=== PATIENT | male | born 1945 | race Asian ===

== ENCOUNTER → 2016-09-28 | Outpatient (CLI) | payer BC, OTHER, MEDICARE ==
--- NOTE | 2016-09-28 22:01 | DI ---
AP PELVIS and BILATERAL HIPS, 09/28/2016 4:19 PM : Clinical History: Bilateral osteoarthritis of the hip. Status post total right hip replacement. Previous Exam: None at this facility. There is no soft tissue abnormality. The bony structures of the pelvis are normal. 2 views of the rig ht hip show the patient be status post total right hip replacement. The prosthetic device articulates normally. A lucency surrounding the proximal third of the femoral shank has decreased on the medial and lateral aspects with no evidence of a lucency around the distal femoral shank. 2 views of the lef t hip show asphericity of the femoral head with what probably represents a dysplastic "bump". Subchon dral cystic changes are present in the femoral head along the superior and medial aspect with more sc lerosis and increase in the number of cystic changes on the acetabular side of the joint space. There has been progressive joint space narrowing superiorly. There is no acetabular over coverage. Readin. 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 2. Status post total right hip replacement. The prosthetic device articulates normally. The lucency surrounding the femoral shank in the proximal third has actually decreased since the last exam partic ularly on the medial aspect. This is unlikely to represent loosening of the prosthesis. The exact jesus ology for this lucency with its subsequent apparent partial resolution is uncertain.
== END ==
LOC: ORTHO 16:51
PROVIDERS: ATTEND Orthopaedic Surgery
DX: Z01.818 Encounter for other preprocedural examination (principal); M16.0 Bilateral primary osteoarthritis of hip; Z96.641 Presence of right artificial hip joint
CPT/HCPCS: 73521

== ENCOUNTER → 2016-09-29 | Outpatient (CLI) | payer BC, OTHER, MEDICARE ==
[2016-09-29 09:19] LABS: BASOPHILS # (AUTO) 0.06 10*3/UL; EOSINOPHILS # (AUTO) 0.19 10*3/UL; EOSINOPHILS % (AUTO) 3.1 % (0-8); HEMATOCRIT 45.4 % (42.0-52.0); HEMOGLOBIN 15.3 g/dL (14.0-18.0); LYMPHOCYTES # (AUTO) 1.02 10*3/uL; MEAN CORPUSCULAR HEMOGLOBIN 29.9 PG (27-31); MEAN CORPUSCULAR HGB CONC 33.7 g/dL (33-37); MEAN CORPUSCULAR VOLUME 88.8 FL (80-90); MEAN PLATELET VOLUME 9.1 FL (7.4-12.2); MONOCYTES # (AUTO) 0.43 10*3/UL (0.3-0.8); NEUTROPHILS # (AUTO) 4.41 10*3/UL; RED BLOOD COUNT 5.11 10^6/uL (4.70-6.10)
--- NOTE | 2016-09-29 09:30 | EKG ---
[address] [address] Measurements Intervals [place] Rate: 57 P: 56 IA: 219 QRS: 50 QRSD: 112 T: 7 QT: 423 QTc: 416 Interpretive Statements SINUS BRADYCARDIA WITH FIRST DEGREE AV BLOCK INTRAVENTRICULAR CONDUCTION DELAY Compared to ECG 05/29/2014 09:58:27 First degree AV block now present Sinus rhythm no longer present T-wave abnormality no longer present Electronically Signed On 09-29-16 12:52:01 MDT by Amari Victor [email or web address]
[2016-09-29 09:35] LABS: PLATELET MORPHOLOGY COMMENT NORMAL MORPHOLOGY (NORM); RBC MORPHOLOGY COMMENT NORMAL MORPHOLOGY (NORM); WBC MORPHOLOGY COMMENT NORMAL MORPHOLOGY (NORM)
[2016-09-29 09:46] LABS: HEMOGLOBIN A1C 6.01 % (4.2-6.0)
[2016-09-29 09:53] LABS: BUN/CREATININE RATIO 20.66 (6-20)
[2016-09-29 09:54] LABS: CALCIUM 9.4 mg/dL (8.7-10.7); SERUM ALBUMIN 4.6 g/dL (3.5-4.8)
[2016-09-29 09:58] LABS: CHOL/HDL RATIO 2.25 RATIO (0-4.0); LDL CHOLESTEROL,CALCULATED 63.2 mg/dL
[2016-09-29 10:49] LABS: CREATININE, URINE 145.3 MG/DL (15-500)
[2016-09-29 10:52] LABS: BILIRUBIN,URINE NEGATIVE (NEG); CLARITY,URINE CLEAR (CLEAR); COLOR,URINE YELLOW; GLUCOSE, URINE (UA) 500 mg/dL (NEG); NITRATE,URINE NEGATIVE (NEG); OCCULT BLOOD,URINE NEGATIVE (NEG); PH,URINE 5.5 (5.0-8.5); PROTEIN,URINE NEGATIVE (NEG); UROBILINOGEN,URINE 0.2 mg/dL (0.2)
[2016-09-29 10:56] LABS: BACTERIA,URINE RARE; RBC,URINE 0-1 /hpf; SQUAMOUS EPITHELIAL CELL,UR RARE; URINE SAMPLE TYPE CLEAN CATCH URINE; WBC,URINE 0-1
== END ==
LOC: LAB 08:46
PROVIDERS: ATTEND Internal Medicine
DX: Z01.812 Encounter for preprocedural laboratory examination (principal); Z01.810 Encounter for preprocedural cardiovascular examination; M16.12 Unilateral primary osteoarthritis, left hip; R00.1 Bradycardia, unspecified; I44.0 Atrioventricular block, first degree; I45.89 Other specified conduction disorders; E11.9 Type 2 diabetes mellitus without complications; I10 Essential (primary) hypertension; E03.9 Hypothyroidism, unspecified; E78.5 Hyperlipidemia, unspecified; G47.33 Obstructive sleep apnea (adult) (pediatric); N40.0 Benign prostatic hyperplasia without lower urinary tract symptoms; Z12.5 Encounter for screening for malignant neoplasm of prostate
CPT/HCPCS: 36415; 80053; 80061; 81001; 82043; 83036; 84443; 85025; 86850; 87641; 93005; 93010; G0103

== ENCOUNTER 2016-10-06 05:59 | Inpatient (IN) | payer BC, OTHER, MEDICARE ==
[~2016-10-06 05:59] MED LIST: LIDOCAINE W/ SODIUM BICARB 0.5 ML SYR ONE; Lactated Ringers 1,000 ML PRIMARY IV ONE; ceFAZolin Inj 2gm (Premix) 50 ML IV ONE
[2016-10-06 06:18] LABS: BILIRUBIN,URINE NEGATIVE (NEG); CLARITY,URINE CLEAR (CLEAR); COLOR,URINE YELLOW; GLUCOSE, URINE (UA) 500 mg/dL (NEG); NITRATE,URINE NEGATIVE (NEG); OCCULT BLOOD,URINE NEGATIVE (NEG); PROTEIN,URINE NEGATIVE (NEG); UROBILINOGEN,URINE 0.2 mg/dL (0.2)
[2016-10-06 06:19] LABS: URINE SAMPLE TYPE CLEAN CATCH URINE
[2016-10-06 06:22] LABS: BACTERIA,URINE RARE; RBC,URINE 0 /hpf; SQUAMOUS EPITHELIAL CELL,UR RARE; WBC,URINE 0
[2016-10-06] MEDS ORDERED: SUFENTANIL 50 MCG/1 ML ONE (06:29)
[2016-10-06] MEDS ORDERED: MIDAZOLAM 5 MG/1 ML ONE (06:29)
[2016-10-06] MEDS ORDERED: LIDOCAINE MPF 2% - 5 ML (20 MG/1 ML) ONE (06:32)
[2016-10-06] MEDS ORDERED: Sodium Chloride 0.9% vial 10 ML ONE ×3 (06:32→07:23)
[2016-10-06] MEDS ORDERED: ROCURONIUM 10 MG/1 ML - 5 ML VIAL IVP ONE (06:34)
[2016-10-06] MEDS ORDERED: Sodium Chloride 0.9% 250 ML IV ONE (06:34)
[2016-10-06] MEDS ORDERED: Sodium Chloride 0.9% 2,000 ML ONE (06:35)
[2016-10-06] MEDS ORDERED: Gentamicin Inj 40 MG/ML VIAL ONE (06:38)
[2016-10-06] MEDS ORDERED: HEPARIN 10,000 UNIT/1 ML ONE (06:38)
[2016-10-06] MEDS ORDERED: ONDANSETRON 4 MG/2 ML VIAL IVP PRN ×2 (06:41→12:37)
[2016-10-06] MEDS ORDERED: fentaNYL Inj 100 MCG/2 ML VIAL IVP PRN (06:41)
[2016-10-06] MEDS ORDERED: Ondansetron ODT Tab 8 MG TAB PO PRN ×2 (06:41→12:37)
[2016-10-06] MEDS ORDERED: NORMAL SALINE 10 ML SYRINGE FLUSH IVP PRN ×2 (06:41→12:37)
[2016-10-06] MEDS ORDERED: ATROPINE SULFATE 0.4 MG/1 ML VIAL IVP PRN (06:41)
[2016-10-06] MEDS ORDERED: Lactated Ringers 1,000 ML PRIMARY IV SCH (06:45)
[2016-10-06] MEDS ORDERED: TRANEXAMIC ACID 1,000 MG / 10 ML VIAL ONE ×2 (07:09→07:13)
[2016-10-06] MEDS ORDERED: Sodium Chloride 0.9% 200 ML IV ONE (07:09)
[2016-10-06] MEDS ORDERED: BUPivacaine Liposome/PF (Exparel) Inj 20ml vial INFIL ONE (07:23)
[2016-10-06] MEDS ORDERED: Bacteriostatic NaCl Inj 30ml Vial ONE (07:23)
[2016-10-06] MEDS ORDERED: KETAMINE 100 MG/1 ML - 5 ML ONE (07:49)
[2016-10-06] MEDS ORDERED: ePHEDrine Inj 50 MG/ML AMP ONE (08:28)
[2016-10-06] MEDS ORDERED: Hetastarch 6% + NS 500 ML IV ONE (09:02)
[2016-10-06] MEDS: Ketorolac Inj 30 MG, Morphine Inj 5 MG, BUPivacaine Inj 0.25% PF 150 MG SPLASH ONE ×9 (09:12→14:21)
[2016-10-06] MEDS ORDERED: GLYCOPYRROLATE 0.2 MG/1 ML VIAL ONE (10:41)
[2016-10-06] MEDS ORDERED: NEOSTIGMINE 1 MG/1 ML - 10 ML ONE (10:41)
[2016-10-06] MEDS ORDERED: Acetaminophen 1000mg Inj 100 ML IV ONE (11:17)
[2016-10-06] MEDS ORDERED: Lactated Ringers 1,000 ML PRIMARY IV ONE (11:43)
[2016-10-06] MEDS ORDERED: ONDANSETRON 4 MG/2 ML VIAL ONE (11:48)
[2016-10-06] MEDS ORDERED: HYDROmorphone 2 MG/1 ML IVP PRN (12:37)
[2016-10-06] MEDS ORDERED: BISACODYL 5 MG TABLET PO PRN (12:37)
[2016-10-06] MEDS ORDERED: IBUPROFEN 400 MG TABLET PO PRN (12:37)
[2016-10-06] MEDS ORDERED: HYDROcodone-APAP 7.5 MG-325 MG TABLET PO PRN (12:37)
[2016-10-06] MEDS ORDERED: Prochlorperazine Tab 10 MG TAB PO PRN (12:37)
[2016-10-06] MEDS ORDERED: diphenhydrAMINE 25 MG CAPSULE PO PRN (12:37)
[2016-10-06] MEDS ORDERED: MAG HYDROX/AL HYDROX/SIMETH 30 ML SUSP PO PRN (12:37)
[2016-10-06] MEDS ORDERED: BISACODYL 10 MG SUPPOSITORY RECTAL PRN (12:37)
[2016-10-06] MEDS ORDERED: CALCIUM CARBONATE 500 MG (TUMS) CHEWABLE TABLET PO PRN (12:37)
[2016-10-06] MEDS ORDERED: ACETAMINOPHEN 325 MG TABLET PO PRN (12:37)
--- NOTE | 2016-10-06 13:05 | CONSULT ---
Consult Note - Consult Consult Date: 10/06/16 Reason for Consult: PostOp Consulation : Ortho Requesting Physician: Dr. 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 Allen. He said he had arthritis secondary to [employer], he had his right hip replaced back in 2014 and now he is coming to have his right hip replacement. Medical history includes history of hypertension, hypothyroidism, BPH and hypercholesterolemia with hyperglycemia, prediabetes. Currently he is having some issues with urination but otherwise he is denying significant pain in his hip, he had some nausea earlier that's resolved. He had some light he said in front of his eyes while was talking to him then he laid down, he said he had history of previous migraine with no headaches before. No chest pain, no shortness of breath. Past Medical History Medical History: 1. Hypertension. 2. Hypercholesterolemia. 3. Hypertriglyceridemia. 4. Bilateral hip osteoarthritis. 5. Sleep apnea with BiPAP use. 6. Hypothyroidism. 7. Diverticulosis Surgical History: 1. Tonsillectomy and Adenoidectomy. 2. Appendectomy. C. Colonoscopy. 4. Sigmoid resection (partial) due to diverticulitis. 5. Anterior cruciate ligament repair. 6. Vasectomy Pertinent Family History: Significant for adult onset diabetes. Parents really due to "old age" Past Social History: Does not smoke or drink. . Has 2 children. Is a radiologist. Tobacco Use: Never Smoker Substance Use Type: None Alcohol Use: Rarely Review of Systems - Review of Systems All Systems: Reviewed & No Additional Complaints Except as Stated Medication / Allergies Home Medications: Home Medications Medication Instructions Recorded Confirmed Type Dapagliflozin Propanediol [Farxiga] 1 tab PO QD #90 tab 09/29/16 10/06/16 Clinic Fenofibrate,Micronized 1 cap PO DAILY #90 09/29/16 10/06/16 Clinic [Fenofibrate] Levothyroxine Sodium [Synthroid] 1 tab PO DAILY #90 tab 09/29/16 10/06/16 Clinic Simvastatin 1 tab PO DAILY #90 tab 09/29/16 10/06/16 Clinic Tadalafil [Cialis] 1 tab PO QD #90 tab 09/29/16 10/06/16 Clinic Tamsulosin HCl 2 cap PO QHS #180 cap 09/29/16 10/06/16 Clinic Triamcinolone Acetonide 45 gm TP QID PRN #1 tube 09/29/16 10/06/16 Clinic Allergies/Adverse Reactions: Allergies Allergy/AdvReac Type Severity Reaction Status Date / Time adhesive Allergy Severe RASH Verified 10/06/16 18:46 bacitracin [From Polysporin] Allergy Severe SWELLING Verified 10/06/16 18:46 polymyxin B sulfate Allergy Severe SWELLING Verified 10/06/16 18:46 [From Polysporin] Latex, Natural Rubber Allergy Intermediate RASH Verified 10/06/16 18:46 Exam - Vitals Vital Signs: Vital Signs Temperature 97.1 F Temperature Source Temporal Artery Scan Pulse Rate 61 Respiratory Rate 14 Blood Pressure 120/73 Oxygen Delivery Method Room Air Height 5 ft 8 in Weight 177 lb - General General Appearance: POSITIVE: No Acute Distress, Cooperative, Obese - Head Head Exam: POSITIVE: Normal Inspection, Atraumatic - Eye Eye Exam: POSITIVE: Normal Appearance - ENT ENT Exam: POSITIVE: Normal Exam - Neck Neck Exam: POSITIVE: Normal Inspection - Respiratory Respiratory Exam: POSITIVE: Clear to Auscultation - Bilaterally - Cardiovascular Cardiovascular Exam: POSITIVE: RRR - GI/Abdominal GI/Abdominal Exam: POSITIVE: Normal Bowel Sounds, Non Tender, Non Distended, Soft Additional GI/Abdominal Exam Details: Bladder is distended - Rectal Rectal Exam: POSITIVE: Deferred - External Exam: POSITIVE: Deferred - Extremities Extremities Exam: POSITIVE: Normal Inspection Additional Extremities Exam Details: As a drain to the left hip - Back Back Exam: POSITIVE: Normal Inspection Results - Labs Labs - Last 24 Hours: Laboratory Results 10/06/16 10/06/16 Range/Units 06:19 06:30 Ur Collection Type Clean catch urine Urine Color Yellow Urine Clarity Clear (CLEAR) Urine pH 5.0 (5.0-8.5) Ur Specific [place] 1.020 (1.005-1.030) Urine Protein Negative (NEG) mg/dl Urine Glucose (UA) 500 (NEG) mg/dL Urine Ketones Negative (NEG) Urine Occult Blood Negative (NEG) Urine Nitrate Negative (NEG) Urine Bilirubin Negative (NEG) Urine Urobilinogen 0.2 (0.2) mg/dL Ur Leukocyte Esterase Negative (NEG) Urine RBC 0 (NONE) /hpf Urine WBC 0 (NONE) Ur Squamous Epith Cells Rare (NONE) Ur Renal Epithelial Cell None (NONE) Urine Crystals None Urine Bacteria Rare (NONE) Urine Casts None Urine Mucus Rare (NONE) Urine Trichomonas None (NONE) Urine Yeast None (NONE) Blood Type A POSITIVE Antibody Screen Negative Assessment and Plan - Patient Problems (1) S/P total hip arthroplasty Current Visit: No Status: Acute Comment: PT and OT were ordered. For DVT prophylaxis he was put on aspirin by Dr. Allen. (2) Hypercholesterolemia with hyperglyceridemia Current Visit: No Status: Acute Comment: Same med (3) BPH (benign prostatic hyperplasia) Current Visit: Yes Status: Acute Comment: Same med (4) Prediabetes Current Visit: Yes Status: Acute Comment: Same med (5) Hypothyroidism Current Visit: No Status: Acute Comment: Same med (6) Vision changes Current Visit: Yes Status: Acute Comment: unclear reason, he is describing lights when he closes his eyes, not present when he open them, no visual acuity issues thought. will watch for now, ? anesthetic related.
[2016-10-06] MEDS: Lactated Ringers 1,000 ML PRIMARY IV SCH ×2 (14:21→23:08)
[2016-10-06] MEDS: TADALAFIL 5 MG PO SCH ×2 (14:21→20:26)
--- NOTE | 2016-10-06 15:07 | DI ---
HISTORY: Post-op total hip. FINDINGS: Examination reveals total left hip replacement prosthesis which appears to be in satisfact ory position and alignment. There is no evidence of recent fracture or dislocation. IMPRESSION: 1. Satisfactory position and alignment of post-surgical hip.
[2016-10-06] MEDS: ceFAZolin Inj 2gm (Premix) 2 GM in Dextrose 1 BAG IV SCH ×2 (16:24→23:33)
[2016-10-06] MEDS: TAMSULOSIN 0.4 MG CAPSULE PO SCH (20:26)
[2016-10-06] MEDS: Simvastatin Tab 40 MG TAB PO SCH (20:26)
[2016-10-06] MEDS: DOCUSATE 100 MG CAPSULE PO SCH (20:28)
[2016-10-07 05:48] LABS: HEMATOCRIT 38.3 % (42.0-52.0); HEMOGLOBIN 12.7 g/dL (14.0-18.0); MEAN CORPUSCULAR HEMOGLOBIN 29.8 PG (27-31); MEAN CORPUSCULAR HGB CONC 33.2 g/dL (33-37); MEAN CORPUSCULAR VOLUME 89.9 FL (80-90); RED BLOOD COUNT 4.26 10^6/uL (4.70-6.10)
[2016-10-07 05:56] LABS: BUN/CREATININE RATIO 17.85 (6-20); CALCIUM 8.2 mg/dL (8.7-10.7)
--- NOTE | 2016-10-07 07:48 | ORTHO.PROG ---
Last Taken Vital Signs: Vital Signs - Last Taken Temperature 98.1 F 10/07/16 07:30 Pulse Rate 78 10/07/16 07:30 Respiratory Rate 16 10/07/16 07:30 Blood Pressure 118/61 10/07/16 07:30 Pulse Ox 94 10/07/16 07:30 Subjective: Patient notes that the visual peripheral changes he was having had resolved after surgery. Notes he is been able to urinate on his own. Objective: A leg is clean and dry drains are in place. The deep drain and the Prev[place] drains are in place and working. Motor and sensory exam is nonfocal Intake and Output - 8hrs 10/06/16 10/06/16 10/07/16 10/07/16 13:59 21:59 05:59 13:59 Intake: IV 2050 200 Intake Oral Amount 760 1620 Output: Output, Drainage Amount 215 150 Left 215 150 Output, Urine Amount 300 850 Output, Estimated Blood 200 Loss Amount Other: Percent Meal Consumed Refused Number of Voids 1 Weight 80.286 kg 80.286 kg Laboratory Results 10/07/16 Range/Units 05:40 WBC 11.68 H (4.8-10.8) 10^3/uL RBC 4.26 L (4.70-6.10) 10^6/uL Hgb 12.7 L (14.0-18.0) g/dL Hct 38.3 L (42.0-52.0) % MCV 89.9 (80-90) FL MCH 29.8 (27-31) PG MCHC 33.2 (33-37) g/dL RDW Std Deviation 45.1 (39-50) fL RDW Coeff of Papa 14.2 (11.5-14.5) % Plt Count 413 H (140-350) 10*3/uL MPV 9.0 (7.4-12.2) FL Sodium 138 (135-145) meq/L Potassium 3.8 (3.8-5.2) meq/L Chloride 102 (98-112) meq/L Carbon Dioxide 26 (23-33) meq/L Anion Gap 10 (5-20) BUN 25 H (7-22) mg/dL Creatinine 1.4 (0.70-1.50) mg/dL Estimated GFR (>60 ml/min/1.73m(2)) BUN/Creatinine Ratio 17.85 (6-20) Glucose 94 (78-110) mg/dL Calculated Osmolality 289.0 (267-292) mOsm/kg Calcium 8.2 L (8.7-10.7) mg/dL Vital Signs (24 hrs) Temp Pulse Pulse Resp BP BP Pulse Ox 10/07/16 07:30 98.1 F 78 16 118/61 94 10/07/16 04:59 99.7 F H 63 18 123/55 96 10/06/16 23:22 98.8 F 79 17 121/58 96 10/06/16 19:29 97.5 F 86 16 123/56 95 10/06/16 17:00 72 16 125/66 95 10/06/16 12:45 98.8 F 72 16 98 10/06/16 12:39 95.6 F L 83 16 140/67 97 10/06/16 12:30 96.9 F 78 16 130/68 100 10/06/16 12:00 96.9 F 83 14 125/72 10/06/16 11:50 85 16 127/70 10/06/16 11:40 87 27 H 116/73 10/06/16 11:30 88 18 135/71 10/06/16 11:20 98 13 144/86 10/06/16 11:15 98 27 H 146/86 10/06/16 11:10 97.9 F 100 27 H 140/79 Assessment: The left anterior total hip replacement doing well Plan: At the current time we will have the patient mobilizes with therapy I want him to ice the hip we'll follow the drainage closely today and look Possibly removing the deep drain based on output of the draining see the patient back sooner for problems. Continue with pneumatic sequentials aspirin.
--- NOTE | 2016-10-07 08:12 | PT.PROG ---
Progress Note Progress Note: 10/06/2016 4:00-4:30 S: pt. reports feeling well after surgery earlier this morning. He used a general anesthesia so he has been up and walking multiple times since surgery. Pt. lives alone here in [place] for the rest of the week. He has 4 stairs he needs to get up into his place and requires education on how to do so with a walker. Pt. leaves to [facility] at the end of the week where he will live for 3 wks and does have assistance. 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 O: pt. was able to perform a supine to stand, ambulate 30 ft. and safely return to seated. He was a little nauseas from the medications. A: pt. is moving very well and will likely need very little from us. He will likely only need some education on how to use the walker and traverse stairs. Ptoblem List 1. decreased mobility 2. increased discomfort Short term goals 1. walk 100 ft with a walker 2. walk 100ft with less than a 5/10 of subjective pain Personal Shopper Goals 1. Normal ambulation for 100ft 2. 0/10 of subjective pain with ADLs P: educate pt. on how to properly use a walker in different situations. perform functional activities. Initial visit: performed a supine to stand, ambulated 30ft. w/ walker, and returned to seated in a controlled manor. Len Carlin [facility]
[2016-10-07] MEDS ORDERED: DAPAGLIFLOZIN PROPANEDIOL 5 MG PO SCH (09:00)
[2016-10-07] MEDS ORDERED: LEVOTHYROXINE 75 MCG TABLET PO SCH (09:00)
--- NOTE | 2016-10-07 09:28 | PDOC(PROG) ---
Date and Time of Service: 10/07/2016 9:25 AM Interval History: Subjective Patient feels better, the vision problem that he had yesterday are resolved. No significant pain in his hip, no chest pain no shortness of breath. No nausea. He did urinate better today. Objective : Data - Labs CBC and BMP: 10/07/16 05:40 10/07/16 05:40 Labs - Last 24 Hours: Laboratory Results 10/07/16 Range/Units 05:40 WBC 11.68 H (4.8-10.8) 10^3/uL RBC 4.26 L (4.70-6.10) 10^6/uL Hgb 12.7 L (14.0-18.0) g/dL Hct 38.3 L (42.0-52.0) % MCV 89.9 (80-90) FL MCH 29.8 (27-31) PG MCHC 33.2 (33-37) g/dL RDW Std Deviation 45.1 (39-50) fL RDW Coeff of Papa 14.2 (11.5-14.5) % Plt Count 413 H (140-350) 10*3/uL MPV 9.0 (7.4-12.2) FL Sodium 138 (135-145) meq/L Potassium 3.8 (3.8-5.2) meq/L Chloride 102 (98-112) meq/L Carbon Dioxide 26 (23-33) meq/L Anion Gap 10 (5-20) BUN 25 H (7-22) mg/dL Creatinine 1.4 (0.70-1.50) mg/dL Estimated GFR (>60 ml/min/1.73m(2)) BUN/Creatinine Ratio 17.85 (6-20) Glucose 94 (78-110) mg/dL Calculated Osmolality 289.0 (267-292) mOsm/kg Calcium 8.2 L (8.7-10.7) mg/dL Objective : Exam - General General Appearance: No Acute Distress, Cooperative - Head Head Exam: Normal Inspection - Eye Eye Exam: Normal Appearance - ENT ENT Exam: Normal Exam - Neck Neck Exam: Normal Inspection - Respiratory Respiratory Exam: Clear to Auscultation - Bilaterally - Cardiovascular Cardiovascular Exam: RRR - GI/Abdominal GI/Abdominal Exam: Normal Bowel Sounds, Non Tender, Non Distended, Soft - External Exam: Deferred - Extremities Additional Extremities Exam Details: No edema noted Assessment and Plan - Patient Problems (1) S/P total hip arthroplasty Current Visit: No Status: Acute Comment: Status post surgery continue PT and OT. Dr. Allen like him to stay another day because of the volume of the fluid being drained, maybe tomorrow home. (2) Hypercholesterolemia with hyperglyceridemia Current Visit: No Status: Acute Comment: Same med (3) BPH (benign prostatic hyperplasia) Current Visit: Yes Status: Acute Comment: Same med (4) Prediabetes Current Visit: Yes Status: Acute Comment: Same med (5) Hypothyroidism Current Visit: No Status: Acute Comment: Same med (6) Vision changes Current Visit: Yes Status: Acute Comment: This is resolved (7) Hypertension Current Visit: No Status: Acute Comment: We'll watch his blood pressure today, he is normally on amlodipine, his blood pressure is acceptable if blood pressure goes higher then will put him back on amlodipine.
[2016-10-07] MEDS: TADALAFIL 5 MG PO SCH (10:01)
[2016-10-07] MEDS: FENOFIBRATE 145 MG TABLET PO SCH (10:01)
[2016-10-07] MEDS: LEVOTHYROXINE 75 MCG TABLET PO SCH (10:07)
[2016-10-07] MEDS: DOCUSATE 100 MG CAPSULE PO SCH ×2 (10:07→20:14)
[2016-10-07] MEDS: ASPIRIN 325 MG EC TABLET PO SCH ×2 (10:07→20:14)
--- NOTE | 2016-10-07 11:16 | PT.PROG ---
<MARQUIS PACHECO - Last Filed: 10/07/16 11:11> Progress Note Progress Note: 10/07/2016 10:00-10:30 S: pt. reports that his hip is feeling good and he is <SACHIN BARCENASNIE - Last Filed: 10/07/16 11:49> Progress Note Progress Note: 10/07/2016 10:00-10:30 S: pt. reports that he is feeling good. He states he has little pain with his hip and wants to do what he can to get home. O: pt. performed a 100ft walk to a staircase where he was taught how to ascend/ descend stairs with a walker. He then went up 12 stairs and down 12 stairs before ambulating 100 ft back to his bed. A: pt. is moving extremely well and is in the right mindset for his return home. The only difficulty i foresee is that he will be living alone this week, so he has little room for error when he does return home. P: continue to improve pt. comfort with functional activities.
--- NOTE | 2016-10-07 11:39 | CRNA.PROGR ---
Anesthesia Note Anesthesia Progress Note: Lying in bed. Converses easily. Has been up to bathroom, passing flatus and urine easily since 4 am this am. Nauseated till 4 am. Only able to void small amounts till 4 am. Visual field effects also departed around 4 am. Reported bright stars around objects in visual field. Also reported rectangular field of view, black when eyes open, bright white when eyes closed. Ambulating easily. Not going home today d/t drain output. Laboratory Results 10/06/16 10/06/16 10/07/16 Range/Units 06:19 06:30 05:40 WBC 11.68 H (4.8-10.8) 10^3/uL RBC 4.26 L (4.70-6.10) 10^6/uL Hgb 12.7 L (14.0-18.0) g/dL Hct 38.3 L (42.0-52.0) % MCV 89.9 (80-90) FL MCH 29.8 (27-31) PG MCHC 33.2 (33-37) g/dL RDW Std Deviation 45.1 (39-50) fL RDW Coeff of Papa 14.2 (11.5-14.5) % Plt Count 413 H (140-350) 10*3/uL MPV 9.0 (7.4-12.2) FL Sodium 138 (135-145) meq/L Potassium 3.8 (3.8-5.2) meq/L Chloride 102 (98-112) meq/L Carbon Dioxide 26 (23-33) meq/L Anion Gap 10 (5-20) BUN 25 H (7-22) mg/dL Creatinine 1.4 (0.70-1.50) mg/dL Estimated GFR (>60 ml/min/1.73m(2)) BUN/Creatinine Ratio 17.85 (6-20) Glucose 94 (78-110) mg/dL Calculated Osmolality 289.0 (267-292) mOsm/kg Calcium 8.2 L (8.7-10.7) mg/dL Ur Collection Type Clean catch urine Urine Color Yellow Urine Clarity Clear (CLEAR) Urine pH 5.0 (5.0-8.5) Ur Specific [place] 1.020 (1.005-1.030) Urine Protein Negative (NEG) mg/dl Urine Glucose (UA) 500 (NEG) mg/dL Urine Ketones Negative (NEG) Urine Occult Blood Negative (NEG) Urine Nitrate Negative (NEG) Urine Bilirubin Negative (NEG) Urine Urobilinogen 0.2 (0.2) mg/dL Ur Leukocyte Esterase Negative (NEG) Urine RBC 0 (NONE) /hpf Urine WBC 0 (NONE) Ur Squamous Epith Cells Rare (NONE) Ur Renal Epithelial Cell None (NONE) Urine Crystals None Urine Bacteria Rare (NONE) Urine Casts None Urine Mucus Rare (NONE) Urine Trichomonas None (NONE) Urine Yeast None (NONE) Blood Type A POSITIVE Antibody Screen Negative Vital Signs (24 hrs) Temp Pulse Resp BP Pulse Ox 10/07/16 07:30 98.1 F 78 16 118/61 94 10/07/16 04:59 99.7 F H 63 18 123/55 96 10/06/16 23:22 98.8 F 79 17 121/58 96 10/06/16 19:29 97.5 F 86 16 123/56 95 10/06/16 17:00 72 16 125/66 95 10/06/16 12:45 98.8 F 72 16 98 10/06/16 12:39 95.6 F L 83 16 140/67 97 Currently without nausea or pain. Pleased with care.
[2016-10-07] MEDS: TAMSULOSIN 0.4 MG CAPSULE PO SCH (20:13)
[2016-10-07] MEDS: Simvastatin Tab 40 MG TAB PO SCH (20:14)
[2016-10-08] MEDS: LEVOTHYROXINE 75 MCG TABLET PO SCH (05:52)
[2016-10-08 06:26] LABS: HEMATOCRIT 38.5 % (42.0-52.0); HEMOGLOBIN 12.7 g/dL (14.0-18.0); MEAN CORPUSCULAR HEMOGLOBIN 29.5 PG (27-31); MEAN CORPUSCULAR VOLUME 89.3 FL (80-90); MEAN PLATELET VOLUME 9.4 FL (7.4-12.2); RED BLOOD COUNT 4.31 10^6/uL (4.70-6.10)
[2016-10-08 06:34] LABS: BUN/CREATININE RATIO 15.38 (6-20); CALCIUM 8.5 mg/dL (8.7-10.7)
[2016-10-08 07:40] VITALS: RESP 16; TEMP 98
--- NOTE | 2016-10-08 08:05 | ORTHO.PROG ---
Last Taken Vital Signs: Vital Signs - Last Taken Temperature 98 F 10/08/16 07:39 Pulse Rate 86 10/08/16 07:39 Respiratory Rate 16 10/08/16 07:39 Blood Pressure 118/60 10/08/16 07:39 Pulse Ox 93 10/08/16 07:39 Subjective: Patient doing well Objective: Dressings are clean and dry no active drainage. No evidence of infection leg is supple Laboratory Results 10/08/16 Range/Units 06:10 WBC 13.00 H (4.8-10.8) 10^3/uL RBC 4.31 L (4.70-6.10) 10^6/uL Hgb 12.7 L (14.0-18.0) g/dL Hct 38.5 L (42.0-52.0) % MCV 89.3 (80-90) FL MCH 29.5 (27-31) PG MCHC 33.0 (33-37) g/dL RDW Std Deviation 45.4 (39-50) fL RDW Coeff of Papa 14.3 (11.5-14.5) % Plt Count 396 H (140-350) 10*3/uL MPV 9.4 (7.4-12.2) FL Sodium 138 (135-145) meq/L Potassium 4.1 (3.8-5.2) meq/L Chloride 105 (98-112) meq/L Carbon Dioxide 25 (23-33) meq/L Anion Gap 8 (5-20) BUN 20 (7-22) mg/dL Creatinine 1.3 (0.70-1.50) mg/dL Estimated GFR (>60 ml/min/1.73m(2)) BUN/Creatinine Ratio 15.38 (6-20) Glucose 124 H (78-110) mg/dL Calculated Osmolality 289.0 (267-292) mOsm/kg Calcium 8.5 L (8.7-10.7) mg/dL Assessment: Left anterior total hip replacement doing well Plan: Continued ice, aspirin 325 mg by mouth twice a day Mobilize with a walker touch toe weightbearing as tolerated.
[2016-10-08] MEDS ORDERED: AmLODIPine Tab 5 MG TABLET PO SCH (09:00)
[2016-10-08] MEDS: DOCUSATE 100 MG CAPSULE PO SCH (09:16)
[2016-10-08] MEDS: ASPIRIN 325 MG EC TABLET PO SCH (09:17)
[2016-10-08] MEDS: FENOFIBRATE 145 MG TABLET PO SCH (09:23)
[2016-10-08] MEDS: TADALAFIL 5 MG PO SCH (09:24)
--- NOTE | 2016-10-08 10:03 | DCSUMMARY ---
Hospitalization Summary Admit Date: 10/06/16 Discharge Date: 10/08/16 Hospital Course: Discharge diagnoses 1. Status post left total hip replacement 2. History of prediabetes 3. History of hypertension 4. History of hypercholesterolemia and hypertriglyceridemia 5. Hypothyroidism 6. History of sleep apnea with BiPAP use. 7. 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 Allen. He had osteoarthritis and previously had right hip replacement in 2014. I saw him postoperatively he had some issues with the urination as he has history of BPH but eventually he did manage to urinate. He did have some visual changes initially that's included some white stars when he closes his eyes that's resolved the next day. He did well apart from the initial problem with urination and the visual changes which resolved the next day he did well with physical therapy. On the day of discharge he is doing well, pain wasn't significant. His exam was not much remarkable. Dr. Allen saw the patient already and thought that he could be discharged so we discharged him to follow-up later on with Dr. Allen. Dr Allen did pull the drain the day before discharge but he kept the suction device and he will be discharged with it until the batteries are . He would remove his own kajal. For DVT prophylaxis he was discharge on aspirin. He had a history of hypertension but we didn't need to restart his blood pressure medication while he was here. I Advised him to recheck his blood pressure numbers at home before restarting the medications. Laboratory Results 10/06/16 10/06/16 10/07/16 Range/Units 06:19 06:30 05:40 WBC 11.68 H (4.8-10.8) 10^3/uL RBC 4.26 L (4.70-6.10) 10^6/uL Hgb 12.7 L (14.0-18.0) g/dL Hct 38.3 L (42.0-52.0) % MCV 89.9 (80-90) FL MCH 29.8 (27-31) PG MCHC 33.2 (33-37) g/dL RDW Std Deviation 45.1 (39-50) fL RDW Coeff of Papa 14.2 (11.5-14.5) % Plt Count 413 H (140-350) 10*3/uL MPV 9.0 (7.4-12.2) FL Sodium 138 (135-145) meq/L Potassium 3.8 (3.8-5.2) meq/L Chloride 102 (98-112) meq/L Carbon Dioxide 26 (23-33) meq/L Anion Gap 10 (5-20) BUN 25 H (7-22) mg/dL Creatinine 1.4 (0.70-1.50) mg/dL Estimated GFR (>60 ml/min/1.73m(2)) BUN/Creatinine Ratio 17.85 (6-20) Glucose 94 (78-110) mg/dL Calculated Osmolality 289.0 (267-292) mOsm/kg Calcium 8.2 L (8.7-10.7) mg/dL Ur Collection Type Clean catch urine Urine Color Yellow Urine Clarity Clear (CLEAR) Urine pH 5.0 (5.0-8.5) Ur Specific [place] 1.020 (1.005-1.030) Urine Protein Negative (NEG) mg/dl Urine Glucose (UA) 500 (NEG) mg/dL Urine Ketones Negative (NEG) Urine Occult Blood Negative (NEG) Urine Nitrate Negative (NEG) Urine Bilirubin Negative (NEG) Urine Urobilinogen 0.2 (0.2) mg/dL Ur Leukocyte Esterase Negative (NEG) Urine RBC 0 (NONE) /hpf Urine WBC 0 (NONE) Ur Squamous Epith Cells Rare (NONE) Ur Renal Epithelial Cell None (NONE) Urine Crystals None Urine Bacteria Rare (NONE) Urine Casts None Urine Mucus Rare (NONE) Urine Trichomonas None (NONE) Urine Yeast None (NONE) Blood Type A POSITIVE Antibody Screen Negative 10/08/16 Range/Units 06:10 WBC 13.00 H (4.8-10.8) 10^3/uL RBC 4.31 L (4.70-6.10) 10^6/uL Hgb 12.7 L (14.0-18.0) g/dL Hct 38.5 L (42.0-52.0) % MCV 89.3 (80-90) FL MCH 29.5 (27-31) PG MCHC 33.0 (33-37) g/dL RDW Std Deviation 45.4 (39-50) fL RDW Coeff of Papa 14.3 (11.5-14.5) % Plt Count 396 H (140-350) 10*3/uL MPV 9.4 (7.4-12.2) FL Sodium 138 (135-145) meq/L Potassium 4.1 (3.8-5.2) meq/L Chloride 105 (98-112) meq/L Carbon Dioxide 25 (23-33) meq/L Anion Gap 8 (5-20) BUN 20 (7-22) mg/dL Creatinine 1.3 (0.70-1.50) mg/dL Estimated GFR (>60 ml/min/1.73m(2)) BUN/Creatinine Ratio 15.38 (6-20) Glucose 124 H (78-110) mg/dL Calculated Osmolality 289.0 (267-292) mOsm/kg Calcium 8.5 L (8.7-10.7) mg/dL Ur Collection Type Urine Color Urine Clarity (CLEAR) Urine pH (5.0-8.5) Ur Specific [place] (1.005-1.030) Urine Protein (NEG) mg/dl Urine Glucose (UA) (NEG) mg/dL Urine Ketones (NEG) Urine Occult Blood (NEG) Urine Nitrate (NEG) Urine Bilirubin (NEG) Urine Urobilinogen (0.2) mg/dL Ur Leukocyte Esterase (NEG) Urine RBC (NONE) /hpf Urine WBC (NONE) Ur Squamous Epith Cells (NONE) Ur Renal Epithelial Cell (NONE) Urine Crystals Urine Bacteria (NONE) Urine Casts Urine Mucus (NONE) Urine Trichomonas (NONE) Urine Yeast (NONE) Blood Type Antibody Screen Discharge instruction Diet regular Activity as started Medications Home Medications Dapagliflozin Propanediol [Farxiga] 1 tab PO QD #90 tab 09/29/16 [Clinic Confirmed 10/06/16] Fenofibrate,Micronized [Fenofibrate] 1 cap PO DAILY #90 09/29/16 [Clinic Confirmed 10/06/16] Levothyroxine Sodium [Synthroid] 1 tab PO DAILY #90 tab 09/29/16 [Clinic Confirmed 10/06/16] Simvastatin 1 tab PO DAILY #90 tab 09/29/16 [Clinic Confirmed 10/06/16] Tadalafil [Cialis] 1 tab PO QD #90 tab 09/29/16 [Clinic Confirmed 10/06/16] Tamsulosin HCl 2 cap PO QHS #180 cap 09/29/16 [Clinic Confirmed 10/06/16] Triamcinolone Acetonide 45 gm TP QID PRN #1 tube 09/29/16 [Clinic Confirmed ] Acetaminophen [Tylenol] 325 - 650 mg PO Q4H PRN #1 tab 10/08/16 [Rx] Aspirin EC 325 mg PO BID #60 tab 10/08/16 [Rx] Follow-up with Dr. Allen as scheduled Condition at discharge was stable for discharge Exam - Vitals Vital Signs: Vital Signs Temperature 98 F Temperature Source Temporal Artery Scan Pulse Rate [Apical] 64 Pulse Rate [Pulse Oximeter] 86 Pulse Rate 83 Respiratory Rate 16 Blood Pressure [Right Arm] 118/60 Blood Pressure 125/72 Pulse Ox 93 Oxygen Flow Rate 2 Oxygen Flow Rate 2 Oxygen Delivery Method Room Air Height 5 ft 8 in Weight 180 lb 3.2 oz - General General Appearance: POSITIVE: No Acute Distress, Obese - Head Head Exam: POSITIVE: Normal Inspection, Atraumatic - Eye Eye Exam: POSITIVE: Normal Appearance - ENT ENT Exam: POSITIVE: Normal Exam - Neck Neck Exam: POSITIVE: Normal Inspection - Respiratory Respiratory Exam: POSITIVE: Clear to Auscultation - Bilaterally - Cardiovascular Cardiovascular Exam: POSITIVE: RRR - GI/Abdominal GI/Abdominal Exam: POSITIVE: Normal Bowel Sounds, Non Tender, Non Distended, Soft - Rectal Rectal Exam: POSITIVE: Deferred - External Exam: POSITIVE: Deferred - Extremities Additional Extremities Exam Details: No significant edema noted in the legs - Back Back Exam: POSITIVE: Normal Inspection - Neurological Neurological Exam: POSITIVE: Alert, Oriented x 3, CN II-XII Intact, Moves All Extremities Equally - Psychiatric Psychiatric Exam: POSITIVE: Normal Affect Patient Problems - Patient Problem List (1) S/P total hip arthroplasty Status: Acute (2) Hypercholesterolemia with hyperglyceridemia Status: Acute (3) BPH (benign prostatic hyperplasia) Status: Acute (4) Prediabetes Status: Acute (5) Hypothyroidism Status: Acute (6) Vision changes Status: Acute (7) Hypertension Status: Acute
--- NOTE | 2016-10-09 10:58 | OTI REPORT ---
Thank you for the referral of Izaiah Bain. He was seen on 10/07/16 for an occupational therapy inpatient evaluation secondary to a left total hip arthroplasty. SUBJECTIVE: The patient is a 71-year-old male who is being seen today secondary to having a left anterior total hip arthroplasty. The patient reports that he does have some difficulty at home with donning his socks but he thinks that he will have enough assistance in order to complete this activity at home. The patient will be staying in the hospital until this afternoon or tomorrow and will be returning to his home in [place] until Wednesday and then he will be flying out to [place] where his other home is. Prior to admission the patient reports that his hip had been giving him quite a bit of pain for the last couple of months and it has really limited his ability to complete ADLs and workout tasks. The patient does have some stairs in his home that he will need to complete. PAST MEDICAL HISTORY: Past medical history can be found in the patient's medical record. OBJECTIVE FINDINGS: Activities of daily living: Today the patient was instructed in the use of a sock aide. He does wear compression hose but he did not feel like the sock aide would be beneficial. He does have a [employer] at home already to complete dressing tasks. The patient does have a shower seat and has been completing toilet transfers independently with the use of the grab bar here at the hospital and does not feel like he needs a higher toilet seat. Transfers: The patient requires contact guard assist for balance with all transfers. ASSESSMENT: At this time the patient is independent with his functional transfers. He does still need assistance with lower extremity dressing because he does have compression socks. The patient will have assistance for the first couple weeks at home, so he just wants to go that route of having them assist him. No adaptive equipment was issued. TREATMENT PLAN: Patient will be discharged from occupational therapy at this time secondary to meeting all goals. INITIAL TREATMENT: Treatment today consisted of the initial inpatient evaluation only. BILLY
== END 2016-10-08 09:58 | disposition home or self-care (01) | DRG 470 ==
LOC: OPS 05:59 → MED/SURG 12:08
PROVIDERS: ADMIT Orthopaedic Surgery; ATTEND Orthopaedic Surgery
PROC: 0SRB039 Replacement of Left Hip Joint with Ceramic Synthetic Substitute, Cemented, Open Approach (ICD-10-PCS; principal; 2016-10-06 08:00)
DX: M16.12 Unilateral primary osteoarthritis, left hip (principal); R73.03 Prediabetes; I10 Essential (primary) hypertension; E78.00 Pure hypercholesterolemia, unspecified; E78.1 Pure hyperglyceridemia; E03.9 Hypothyroidism, unspecified; G47.30 Sleep apnea, unspecified; N40.0 Benign prostatic hyperplasia without lower urinary tract symptoms
CPT/HCPCS: 73502; 76001; 80048; 81001; 85027; 86850; 86900; 86901; 94150; 94761; 97116; 97161; 97165; 97530; A4216; J0131; J0690; J1580; J1644; J1885; J2001; J2250; J2270; J2405; J2710; J3490; J7030; J7050; J7120; S0020